=== PATIENT | male | born 1985 | race Two or more races ===

== ENCOUNTER 2021-03-29 21:22 | Emergency (ER) | payer MEDICARE, OTHER ==
[~2021-03-29] VITALS: Ht 167.6 cm; Wt 61.2 kg
--- NOTE | 2021-03-29 21:30 | NUR ---
PATIENT BIBRA C/O HAVING A SEIZURE. PATIENT IS A/O TO TOUCH, PT Hx BLIND,DEAF, SEIZURE. PATIENT CONNECTED TO HEAD KILN OPERATOR AND POX. SEIZURE PRECAUTIONS ARE IN PLACE. SISTER IS AT BEDSIDE. WILL CONTINUE TO MONITOR.
--- NOTE | 2021-03-29 22:04 | NUR ---
PATIENT TAKEN TO CT
[2021-03-29] MEDS ORDERED: ACETAMINOPHEN 325 MG TABLET PO ONE (22:30)
[2021-03-29] MEDS ORDERED: ACETAMINOPHEN 325 MG TABLET ONE (22:38)
[2021-03-29 22:51] LABS: BASOPHILS % (AUTO) 0.5 % (0.0-2.0); EOSINOPHILS % (AUTO) 1.7 % (0.0-6.0); HEMATOCRIT 44 % (39-51); LYMPHOCYTES # (AUTO) 0.8 K/uL (0.8-4.8); LYMPHOCYTES % (AUTO) 17.2 % (20.0-44.0); MEAN CORPUSCULAR HGB CONC 34 g/dl (31.0-36.0); MEAN CORPUSCULAR VOLUME 89 fL (80-96); MONOCYTES # (AUTO) 0.3 K/uL (0.1-1.30); MONOCYTES % (AUTO) 6.7 % (2.0-12.0); NEUTROPHILS # (AUTO) 3.5 K/uL (1.8-8.9); NEUTROPHILS % (AUTO) 73.9 % (43.0-81.0); PLATELET COUNT (AUTO) 257 K/uL (150-450); RED BLOOD CELL COUNT(AUTO) 5.01 MIL/uL (4.5-6.0); WHITE BLOOD COUNT (AUTO) 4.8 K/uL (4.3-11.0)
--- NOTE | 2021-03-29 23:10 | NUR ---
URINE SENT TO LAB
[2021-03-29 23:11] LABS: CALCIUM, SERUM 9.2 mg/dL (8.5-10.1); CARBON DIOXIDE 22 mmol/L (21-32); CHLORIDE 97 mmol/L (98-107); CREATININE 0.6 mg/dL (0.6-1.3); GLUCOSE 123 mg/dL (74-106); POTASSIUM 3.5 mmol/L (3.5-5.1); SODIUM SERUM 133 mmol/L (136-145); UREA NITROGEN, BLOOD 7 mg/dL (7-18)
[2021-03-29 23:16] LABS: ALANINE AMINOTRANSFERASE 78 U/L (12-78); ALBUMIN 4.1 g/dL (3.4-5.0); ALKALINE PHOSPHATASE 248 U/L (46-116); ASPARTATE AMINOTRANSFERASE 41 U/L (15-37); BILIRUBIN,DIRECT 0.1 mg/dL (0.0-0.2); BILIRUBIN,TOTAL 0.3 mg/dL (0.2-1.0)
--- NOTE | 2021-03-29 23:19 | NUR ---
CALLED LAB TO CHECK FOR URINE RESULTS
[2021-03-29 23:22] LABS: BILIRUBIN,URINE Negative (NEGATIVE); COLOR,URINE YELLOW (YELLOW); LEUKOCYTE ESTERASE ,URINE Negative (NEGATIVE); NITRITE, URINE Negative (NEGATIVE); PROTEIN,URINE 100 mg/dl (NEGATIVE); UGLUCOSE Negative (NEGATIVE); UROBILINOGEN,URINE 0.2 EU/dL (0.2)
--- NOTE | 2021-03-30 00:24 | NUR ---
Patient discharged to home in stable condition. Written and verbal after care instructions given. Patient verbalizes understanding of instruction.
[2021-03-30 00:25] VITALS: BP 103/66
== END 2021-03-30 00:25 | disposition home or self-care (01) ==
LOC: ER 21:34
DX: G40.909 Epilepsy, unspecified, not intractable, without status epilepticus (principal); R00.0 Tachycardia, unspecified; Z88.0 Allergy status to penicillin; Z88.5 Allergy status to narcotic agent; Z88.1 Allergy status to other antibiotic agents
CPT/HCPCS: 36415; 70450-TC; 71045-TC; 80048-TC; 80076-TC; 82550-TC; 83605-TC; 85025-TC; 85730-TC

== ENCOUNTER 2022-02-05 03:33 | Inpatient (IN) | payer MEDICARE, OTHER ==
[~2022-02-05] VITALS: Ht 149.9 cm; Wt 36.7 kg
--- NOTE | 2022-02-05 03:36 | NUR ---
THELMA 37 FROM HOME FOR C/O SEIZURE EPISODE. PATIENT NON VERBAL, IN BED 06 ON MONITOR AND POX, AWAITING MD ZAPIEN. RECTAL TEMP RECORDED 101. SEIZURE PRECAUTIONS NOTED.
[2022-02-05] MEDS ORDERED: LORAZEPAM INJ 2 MG/ML VIAL ONE ×2 (03:44→03:57)
--- NOTE | 2022-02-05 03:50 | NUR ---
CARLA ESTABLISHED LFA #20 S/L; PATENT AND INTACT. RFA #20G S/L PATENT AND INTACT.
[2022-02-05] MEDS ORDERED: LEVETIRACETAM (500MG) 500 MG/5 ML VIAL IV ONE (03:55)
[2022-02-05 04:00] LABS: BASOPHILS # (AUTO) 0.1 K/uL (0.0-0.2); BASOPHILS % (AUTO) 0.8 % (0.0-2.0); EOSINOPHILS % (AUTO) 1.8 % (0.0-6.0); HEMATOCRIT 40 % (39-51); HEMOGLOBIN 13.6 g/dL (13.5-17.5); LYMPHOCYTES # (AUTO) 2.3 K/uL (0.8-4.8); LYMPHOCYTES % (AUTO) 31.3 % (20.0-44.0); MEAN CORPUSCULAR HGB CONC 34 g/dl (31.0-36.0); MEAN CORPUSCULAR VOLUME 88 fL (80-96); MONOCYTES # (AUTO) 0.7 K/uL (0.1-1.30); MONOCYTES % (AUTO) 9.6 % (2.0-12.0); NEUTROPHILS # (AUTO) 4.1 K/uL (1.8-8.9); NEUTROPHILS % (AUTO) 56.5 % (43.0-81.0); PLATELET COUNT (AUTO) 197 K/uL (150-450); RED BLOOD CELL COUNT(AUTO) 4.51 MIL/uL (4.5-6.0); WHITE BLOOD COUNT (AUTO) 7.2 K/uL (4.3-11.0)
[2022-02-05] MEDS ORDERED: LEVETIRACETAM (500MG) 500 MG in IV NS 0.9% 100 ML IV ONE (04:00)
[2022-02-05] MEDS ORDERED: AZTREONAM 2 G in IV NS 0.9% 100 ML IV ONE (04:00)
[2022-02-05] MEDS ORDERED: IV NS 0.9% 1,000 ML BAG IV ONE ×2 (04:00)
[2022-02-05] MEDS ORDERED: LINEZOLID RTU BAG 600 MG in PREMIX 1 EA IV SCH ×2 (04:00→09:00)
[2022-02-05] MEDS ORDERED: LORAZEPAM INJ 2 MG/ML VIAL IVP ONE (04:00)
--- NOTE | 2022-02-05 04:00 | NUR ---
COVID SWAB DONE AND SENT TO LAB
--- NOTE | 2022-02-05 04:00 | NUR ---
BLOOD AND CULTURES COLLECTED AND SENT TO LAB
[2022-02-05] MEDS ORDERED: AZTREONAM 1 G VIAL ONE (04:06)
[2022-02-05 04:16] LABS: CALCIUM, SERUM 8.6 mg/dL (8.5-10.1); CARBON DIOXIDE 27 mmol/L (21-32); CHLORIDE 92 mmol/L (98-107); CREATININE 0.9 mg/dL (0.6-1.3); GLUCOSE 133 mg/dL (74-106); POTASSIUM 3.5 mmol/L (3.5-5.1); SODIUM SERUM 130 mmol/L (136-145); UREA NITROGEN, BLOOD 5 mg/dL (7-18)
--- NOTE | 2022-02-05 04:16 | NUR ---
URINE COLLECTED AND SENT TO LAB
[2022-02-05 04:21] LABS: ALANINE AMINOTRANSFERASE 43 U/L (12-78); ALBUMIN 4.3 g/dL (3.4-5.0); ALCOHOL, BLOOD < 3 mg/dL (0-0); ALKALINE PHOSPHATASE 213 U/L (46-116); ASPARTATE AMINOTRANSFERASE 28 U/L (15-37); BILIRUBIN,DIRECT 0.2 mg/dL (0.0-0.2); BILIRUBIN,TOTAL 0.3 mg/dL (0.2-1.0); TOTAL PROTEIN, SERUM 8.3 g/dL (6.4-8.2)
--- NOTE | 2022-02-05 04:22 | NUR ---
ZYVOX 600MG NOT AVAILABLE. WILL CALL RN HORSE SHOW MANAGER FOR MED
--- NOTE | 2022-02-05 04:22 | NUR ---
HIGH SCHOOL HISTORY TEACHER AT PT'S BEDSIDE
--- NOTE | 2022-02-05 04:30 | NUR ---
MRSA SWAB COLLECTED AND SENT TO LAB. PT BELONGINGS LIST DONE
--- NOTE | 2022-02-05 04:32 | NUR ---
PT TAKEN TO CT VIA ELIAS
--- NOTE | 2022-02-05 04:34 | NUR ---
CRITICAL LAB: LACTIC ACID 7.5. DR. LAW TOMAS AWARE
[2022-02-05 05:15] LABS: BILIRUBIN,URINE NEGATIVE (NEGATIVE); COLOR,URINE YELLOW (YELLOW); LEUKOCYTE ESTERASE ,URINE MODERATE (NEGATIVE); NITRITE, URINE NEGATIVE (NEGATIVE); PROTEIN,URINE 100 mg/dl (NEGATIVE); UGLUCOSE NEGATIVE (NEGATIVE); UROBILINOGEN,URINE 0.2 EU/dL (0.2)
--- NOTE | 2022-02-05 05:17 | NUR ---
[facility] PAGED
[2022-02-05 05:32] LABS: BACTERIA,URINE Many /HPF (None Seen); SQUAMOUS EPITHELIAL CELL,UR 0-2 /HPF (None Seen); WBC,URINE TOO NUMEROUS TO COUN /HPF (0-3)
[2022-02-05] MEDS ORDERED: LEVE100023 GT (06:32)
[2022-02-05] MEDS ORDERED: PANT40TA2 GT (06:32)
[2022-02-05] MEDS ORDERED: LACT10SO3 GT (06:32)
[2022-02-05] MEDS ORDERED: LEVE100S GT (06:32)
[2022-02-05] MEDS ORDERED: OXCA300T15 GT (06:32)
--- NOTE | 2022-02-05 06:58 | NUR ---
PATIENT TRANSFERRED UNDER ACLS
[2022-02-05] MEDS ORDERED: MAG HYDROX/AL HYDROX/SIMETH 30 ML UDC PO PRN (07:00)
[2022-02-05] MEDS ORDERED: ONDANSETRON HCL/PF 4 MG/2 ML VIAL IVP PRN (07:00)
[2022-02-05] MEDS ORDERED: ACETAMINOPHEN 325 MG TABLET PO PRN (07:00)
[2022-02-05] MEDS ORDERED: LORAZEPAM INJ 2 MG/ML VIAL IV PRN (07:00)
--- NOTE | 2022-02-05 07:00 | NUR ---
RN NOTE- PT ARRIVED ON UNIT. REPORT RECEIVED FROM ED STAFF. BEGIN ADMISSION PROCESS
--- NOTE | 2022-02-05 07:15 | NUR ---
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 PT HAS SEPSIS AND UTI DX. ON ADMISSION, PT IS DEAF / MUTE, CONTRACTED AND FAIRLY UNRESPONSIVE EXCEPT THROUGH VERY MILD PAIN STIMULI. PT CONTRACTED, FRAIL AND WEIGHS 81 POUNDS. HE HAS AN IV HEPLOCK TO RFA. CHEST - TO AUSCULTATION, NO RHONCHI, NO RALES, DIMINISHED THROUGHOUT. ABDOMEN, SOFT NON-TENDER, NO DISTENTION, NO REBOUND TENDERNESS. BS POSITIVE AND HYPOACTIVE. GT IN PLACE. NO ERYTHEMA NOTED. SWALLOW EVAL ORDERED. ORDERS RECEIVED AND COMPLIED WITH. SEIZURE PRECAUTIONS IN PLACE, SIDE RAILS UP X 4, BED LOCKED, MONITOR, ASSIST
[2022-02-05] MEDS ORDERED: PANTOPRAZOLE 40 MG TABLET.DR PO SCH (07:30)
[2022-02-05 08:00] VITALS: BP 100/74
[2022-02-05] MEDS ORDERED: MAG HYDROX/AL HYDROX/SIMETH 30 ML UDC GT PRN (08:10)
[2022-02-05] MEDS: ENOXAPARIN SODIUM 40 MG/0.4 ML DISP.SYRIN SQ SCH (08:25)
[2022-02-05] MEDS ORDERED: ACETAMINOPHEN 650 MG/20.3 ML UDC PO PRN (08:30)
[2022-02-05] MEDS ORDERED: LACT-47 GT (08:31)
[2022-02-05] MEDS ORDERED: OXCA300O5 GT (08:31)
[2022-02-05] MEDS ORDERED: PANT40SU2 GT (08:31)
[2022-02-05] MEDS ORDERED: LEVETIRACETAM (500MG) 500 MG in IV NS 0.9% 100 ML IV SCH (09:00)
[2022-02-05] MEDS ORDERED: Z GUARD REMEDY 4 OZ OINT TP PRN (09:00)
[2022-02-05 12:00] VITALS: BP 86/57
[2022-02-05] MEDS ORDERED: AZTREONAM 1 G in IV NS 0.9% 100 ML IV SCH (13:00)
--- NOTE | 2022-02-05 13:00 | NUR ---
RN NOTE- INITIATED JEVITY AT 20/HR. INCREASE Q4H
[2022-02-05] MEDS: JEVITY 1.2 CAL 1,000 ML BOTTLE GT PRN (13:04)
[2022-02-05] MEDS: CEFTRIAXONE 1 G in IV D5W 50 ML IV SCH (13:18)
[2022-02-05 16:00] VITALS: BP 88/47
[2022-02-05] MEDS: OXCARBAZEPINE 150 MG TABLET GT SCH (16:02)
--- NOTE | 2022-02-05 16:22 | NUR ---
RN NOTE- DR HERNANDEZ SAW PT AND ORDERED KEPPRA 1000MG Q12H. PT THEN STOPPED THIS RN AND ASKED TO CHANGE ORDER TO KEPPRA 750 MG Q12H . COMPLIED
--- NOTE | 2022-02-05 17:00 | NUR ---
RN NOTE- JEVITY INCREASED TO 40 / HR . TOLERATING WELL. NO RESIDUAL
--- NOTE | 2022-02-05 18:57 | NUR ---
RN CLOSING NOTE- PT IN BED, NOT REALLY RESPONSIVE, SOMNOLENT, GT FEEDING JEVITY AT 30/HR, NO RESIDUAL. CHEST CLEAR TO AUSCULTATION, CONTRACTED EXTREMITIES. SKIN INTACT. SIDE RAILS UP AND PADDED FOR SEIZURE PRECATIONS, BED LOCKED. MONITOR / ASSIST
[2022-02-05 20:00] VITALS: BP 97/56
--- NOTE | 2022-02-05 20:30 | NUR ---
RN NOTES: RECEIVED PATIENT SLEEP IN BED COMFORTABLY, BED IN LOW POSITION CALL LIGHTS WITHIN REACH, NO COMPLAIN OF PAIN AND DISCOMFORT AT THIS TIME ON O2 INHALATION AT AT 5LPM VIA NASAL CANNULA PATIENT IS MONITORING FOR DESATURATION, WITH IV LINE AT RFA#20 AND LFA#20 SALINE LOCK, PATIENT ON G TUBE FEEDING OF JEVITY 1.2 AT 30CC/HR TO ADVANCE TO 45CC,ON MONITORING FOR SEIZURE NO SEIZURE HAS BEEN OBSERVED, PATIENT KEPT CLEAN AND DRY ALL NEEDS MET WILL CONTINUE TO MONITOR.
[2022-02-05] MEDS ORDERED: LEVETIRACETAM (500MG) 1,000 MG in IV NS 0.9% 100 ML IV SCH (21:00)
[2022-02-05] MEDS: LEVETIRACETAM (500MG) 750 MG in IV NS 0.9% 100 ML IV SCH (21:08)
[2022-02-05] MEDS ORDERED: ZOLPIDEM TARTRATE 5 MG TABLET GT PRN (22:00)
[2022-02-05] MEDS ORDERED: MAGNESIUM HYDROXIDE 30 ML UDC GT PRN (22:00)
[2022-02-06 04:00] VITALS: BP 96/62
--- NOTE | 2022-02-06 06:31 | NUR ---
REPRESENTATIVE CLOSING NOTES: PATIENT SLEEP IN BED COMFORTABLY, BED IN LOW POSITION CALL LIGHTS WITHIN REACH, NO COMPLAIN OF PAIN AND DISCOMFORT AT THIS TIME, ON O2 INHALATION AT 5LPM SATURATING WELL, ON TELE MONITOR A FIB-104 CONTROL .PATIENT IS A/OX1 CONTRACTED AT [facility], ON BILATERAL MITTENS DUE TO HITTING SELF, PATIENT ON NG TUBE OF JEVITY 1.2@45ML/HR INFUSING WELL, PATIENT KEPT CLEAN AND DRY ALL NEEDS MET ENDORSE TO INCOMING SHIFT
[2022-02-06 06:39] LABS: BASOPHILS % (AUTO) 0.2 % (0.0-2.0); HEMATOCRIT 36 % (39-51); HEMOGLOBIN 12.5 g/dL (13.5-17.5); LYMPHOCYTES # (AUTO) 0.6 K/uL (0.8-4.8); LYMPHOCYTES % (AUTO) 11.8 % (20.0-44.0); MEAN CORPUSCULAR HGB CONC 35 g/dl (31.0-36.0); MEAN CORPUSCULAR VOLUME 85 fL (80-96); MONOCYTES # (AUTO) 0.2 K/uL (0.1-1.30); MONOCYTES % (AUTO) 4.7 % (2.0-12.0); NEUTROPHILS # (AUTO) 3.9 K/uL (1.8-8.9); NEUTROPHILS % (AUTO) 83.3 % (43.0-81.0); PLATELET COUNT (AUTO) 125 K/uL (150-450); RED BLOOD CELL COUNT(AUTO) 4.22 MIL/uL (4.5-6.0); WHITE BLOOD COUNT (AUTO) 4.7 K/uL (4.3-11.0)
[2022-02-06] MEDS: ENOXAPARIN SODIUM 40 MG/0.4 ML DISP.SYRIN SQ SCH (06:47)
[2022-02-06 06:53] LABS: CALCIUM, SERUM 8.4 mg/dL (8.5-10.1); CREATININE 0.6 mg/dL (0.6-1.3); MAGNESIUM 2.2 mg/dL (1.8-2.4); PHOSPHORUS 2.6 mg/dL (2.5-4.9); POTASSIUM 3.2 mmol/L (3.5-5.1)
--- NOTE | 2022-02-06 07:30 | NUR ---
RECREATION THERAPY AIDES TEACHER NOTES PT IN BED, AWAKE, NON VERBAL, NO SIGN OF PAIN OR DISTRESS, GT FEEDING INFUSING WELL, TOLERATES WELL, KEPT WARM AND COMFORTABLE IN BED.
[2022-02-06] MEDS: LEVETIRACETAM (500MG) 750 MG in IV NS 0.9% 100 ML IV SCH ×2 (09:09→21:14)
[2022-02-06] MEDS: OXCARBAZEPINE 150 MG TABLET GT SCH ×2 (09:10→17:16)
[2022-02-06] MEDS: PANTOPRAZOLE 40 MG/PACK PACK GT SCH (09:10)
--- NOTE | 2022-02-06 10:59 | NUR ---
PATIENT FINANCIAL SERVICES MANAGER NOTES PT SEEN AND EXAMINED BY DR. KIM, ORDERS GIVEN, NOTED AND CARRIED OUT.
--- NOTE | 2022-02-06 10:59 | NUR ---
REEL OPERATOR NOTES DE. KIM INFORMED THAT PT HAS TENDENCIES TO HIT HIS FACE AND PICK ON HIS IV LINES, BILATERAL MITTENS ORDERED.
[2022-02-06] MEDS ORDERED: POTASSIUM CHLORIDE 20 MEQ TAB.PRT.SR PO ONE (11:00)
[2022-02-06] MEDS: CEFTRIAXONE 1 G in IV D5W 50 ML IV SCH (12:35)
[2022-02-06 16:00] VITALS: BP 105/59
[2022-02-06] MEDS: JEVITY 1.2 CAL 1,000 ML BOTTLE GT PRN (18:29)
--- NOTE | 2022-02-06 19:00 | NUR ---
RN MS Pt resting in bed comfortably. No s/s of distress or pain noted. Afternoon meds administered, VS remain stable, on feeding Jevity 1.2 nagi, with J tube site intact. Will endorse to PM nurse.
--- NOTE | 2022-02-06 19:00 | NUR ---
RN opening notes Received Pt in bed resting comfortably. Pt is obtunded and able to open eyes. On 5 L NC. No SOB. No S/S of distress noted. IV site at RFA# 20 is clean, intact and flushes easily. Iv site at LFA# 20 is clean, intact and SL. Gtube is inplaced and running jevity 1.2 @ 45 ml/hr. Safety precautions is maintained. Bed at low position, brakes locked, side rails upX3, hob elevated, bed alarm is on and call light is within reach. Will continue to monitor.
[2022-02-06 20:00] VITALS: BP 108/61
--- NOTE | 2022-02-06 23:13 | NUR ---
RN notes Informed and notified Dr. Pompa regarding KUB result. MD ordered enemaX1/one time. Order carry out.
[2022-02-06] MEDS ORDERED: NA PHOS,M-B/NA PHOS,DI-BA 1 EA ENEMA RC ONE (23:30)
--- NOTE | 2022-02-06 23:46 | NUR ---
RN notes Administered enema per MD ordered. Pt tolerated activity well. Will continue to monitor.
[2022-02-07] MEDS: ENOXAPARIN SODIUM 40 MG/0.4 ML DISP.SYRIN SQ SCH (06:10)
--- NOTE | 2022-02-07 06:40 | NUR ---
RN closing notes Pt is resting in bed comfortably. Pt is obtunded and able to open eyes. On 5 L NC. No SOB. No S/S of distress noted. VS is stable. routine meds were given as ordered. IV site at RFA# 20 is clean, intact and flushes easily. Iv site at LFA# 20 is clean, intact and SL. Gtube is inplaced and running jevity 1.2 @ 45 ml/hr with 0 residual. Pt had 2 BM after enema. Kept Pt clean, dry and comfortable. Safety precautions is maintained. Bed at low position, brakes locked, side rails upX3, hob elevated, bed alarm is on and call light is within reach. Will endorse to am nurse for ROSY.
--- NOTE | 2022-02-07 07:48 | NUR ---
MS RN OPENING NOTE Patient is obtunded and non-verbal. On O2 at 5 LPM via NC, breathing evenly and unlabored. No SOB or s/s of distress noted. IV access on RFA #20 and LFA #20 both intact and patent. G-tube in place running Jevity 1.2 at 45 ml/hr. Bilateral soft restraints (mittens) noted. Safety precautions in place: bed in low, locked position; siderailsup x 2; call light within reach. Will continue to monitor.
[2022-02-07] MEDS: PANTOPRAZOLE 40 MG/PACK PACK GT SCH (08:15)
[2022-02-07] MEDS: OXCARBAZEPINE 150 MG TABLET GT SCH ×2 (08:16→16:19)
[2022-02-07] MEDS ORDERED: LEVETIRACETAM SOL (5 ML) 100 MG/ML UDC GT SCH (09:00)
[2022-02-07] MEDS ORDERED: NA PHOS,M-B/NA PHOS,DI-BA 1 EA ENEMA RC ONE (11:00)
[2022-02-07] MEDS: CEFTRIAXONE 1 G in IV D5W 50 ML IV SCH (13:01)
[2022-02-07] MEDS ORDERED: LEVE100S GT (13:02)
--- NOTE | 2022-02-07 14:18 | NUR ---
RN NOTE Upon rounds, noticed patient hitting head with left hand with the mitten. Redness on forehead noted, photo taken and placed in chart. Patient's sister, Carolynn, notified, as per sister that is a normal occurrence with patient. Addendum: 02/07/22 at 1434 by LOUIS SHANKS RN ADD: Patient is deaf-mute and blind. Restraints changed to bilateral soft wrist, to prevent patient from hitting head.
--- NOTE | 2022-02-07 17:00 | NUR ---
DISCHARGE NOTE Received order for discharge. Patient is obtunded and non-verbal; deaf, mute, and blind. On 5LPM via NC, breathing evenly and unlabored. No SOB or s/s of distress noted. Discharge instructions given to patient's sister. No belongings at bedside. G-tube in place, feeding disconnected. IV access on RFA and LFA removed, catheter tips intact. Pressure dressing applied, no signs of bleeding noted. ID band removed. Exitcare folder given to EMT. Patient left in stable condition with 3 hoop punch operator helper present.
== END 2022-02-07 17:00 | disposition home or self-care (01) | DRG 871 ==
LOC: ER 03:34 → TELE 06:03 → MED 02-06 17:57
PROVIDERS: ADMIT Nurse Practitioner Acute Care; ATTEND Internal Medicine
DX: A41.9 Sepsis, unspecified organism (principal); G93.41 Metabolic encephalopathy; N39.0 Urinary tract infection, site not specified; E87.2 Acidosis; E87.1 Hypo-osmolality and hyponatremia; G40.909 Epilepsy, unspecified, not intractable, without status epilepticus; Z20.822 Contact with and (suspected) exposure to COVID-19; H54.7 Unspecified visual loss; H91.3 Deaf nonspeaking, not elsewhere classified; Z88.1 Allergy status to other antibiotic agents; Z88.5 Allergy status to narcotic agent; Z88.0 Allergy status to penicillin; Z79.899 Other long term (current) drug therapy; Z93.1 Gastrostomy status; R13.10 Dysphagia, unspecified; Z98.2 Presence of cerebrospinal fluid drainage device; Z74.01 Bed confinement status; Z86.69 Personal history of other diseases of the nervous system and sense organs; K31.89 Other diseases of stomach and duodenum; E11.43 Type 2 diabetes mellitus with diabetic autonomic (poly)neuropathy; K31.84 Gastroparesis; E87.6 Hypokalemia; G93.89 Other specified disorders of brain
CPT/HCPCS: 36415; 70450-TC; 71045-TC; 74018; 80048-TC; 80076-TC; 81001; 82962-TC; 83605-TC; 83735-TC; 84100-TC; 84484-TC; 85025-TC; 85730-TC; 87040-TC; 87081-TC; 87086-TC; 94799-TC; A4216; C9803; G0378; G0480; J0696; J1650; J1953; J2020; J2060; J3490; J7030; J7040; J7060

== ENCOUNTER 2023-10-14 16:46 | Inpatient (IN) | payer MEDICARE, OTHER ==
[~2023-10-14] VITALS: Ht 152.4 cm; Wt 36.3 kg
[~2023-10-14 16:46] MED LIST: LACT-47 GT; LACT10SO3 GT; LEVE100S GT; OXCA300O5 GT; PANT40SU2 GT
[2023-10-14 19:37] LABS: BASOPHILS % (AUTO) 0.9 % (0.0-2.0); EOSINOPHILS # (AUTO) 0.2 K/uL (0.0-0.7); EOSINOPHILS % (AUTO) 4.1 % (0.0-6.0); HEMATOCRIT 43 % (39-51); HEMOGLOBIN 14.3 g/dL (13.5-17.5); LYMPHOCYTES # (AUTO) 1.3 K/uL (0.8-4.8); LYMPHOCYTES % (AUTO) 32.2 % (20.0-44.0); MEAN CORPUSCULAR HEMOGLOBIN 28 PG (26.0-33.0); MEAN CORPUSCULAR HGB CONC 33 g/dl (31.0-36.0); MEAN CORPUSCULAR VOLUME 85 fL (80-96); MONOCYTES # (AUTO) 0.4 K/uL (0.1-1.30); MONOCYTES % (AUTO) 10.6 % (2.0-12.0); NEUTROPHILS # (AUTO) 2.1 K/uL (1.8-8.9); NEUTROPHILS % (AUTO) 52.2 % (43.0-81.0); PLATELET COUNT (AUTO) 202 K/uL (150-450); RED BLOOD CELL COUNT(AUTO) 5.09 MIL/uL (4.5-6.0); RED CELL DISTRIBUTION WIDTH 13.2 % (11.5-15.0)
[2023-10-14 19:43] LABS: APPEARANCE,URINE Clear (CLEAR); BILIRUBIN,URINE Negative (NEGATIVE); BLOOD, URINE Negative Ery/uL (NEGATIVE); COLOR,URINE LIGHT YELLOW (YELLOW); KETONES,URINE Negative (NEGATIVE); LEUKOCYTE ESTERASE ,URINE Negative (NEGATIVE); NITRITE, URINE Negative (NEGATIVE); PH,URINE 7.5 (5.0-8.0); PROTEIN,URINE Negative (NEGATIVE); UGLUCOSE Negative (NEGATIVE); UROBILINOGEN,URINE 0.2 EU/dL (0.2)
[2023-10-14 19:44] LABS: CALCIUM, SERUM 9.1 mg/dL (8.5-10.1); CARBON DIOXIDE 26 mmol/L (21-32); CHLORIDE 92 mmol/L (98-107); CREATININE 0.7 mg/dL (0.6-1.3); GLUCOSE 88 mg/dL (74-106); POTASSIUM 4.2 mmol/L (3.5-5.1); SODIUM SERUM 125 mmol/L (136-145); UREA NITROGEN, BLOOD 4 mg/dL (7-18)
[2023-10-14 19:50] LABS: ALANINE AMINOTRANSFERASE 38 U/L (12-78); ALCOHOL, BLOOD < 3 mg/dL (0-10); ALKALINE PHOSPHATASE 221 U/L (46-116); ASPARTATE AMINOTRANSFERASE 22 U/L (15-37); BILIRUBIN,DIRECT 0.1 mg/dL (0.0-0.2); BILIRUBIN,TOTAL 0.3 mg/dL (0.2-1.0); TOTAL PROTEIN, SERUM 7.9 g/dL (6.4-8.2)
[2023-10-14 19:52] LABS: ACETAMINOPHEN <10 ug/ml (10-30)
[2023-10-14 20:01] LABS: AMPHETAMINE, URINE NEGATIVE (NEGATIVE); BARBITURATE, URINE NEGATIVE (NEGATIVE); BENZODIAZEPINE, URINE NEGATIVE (NEGATIVE); CANNABINOID, URINE NEGATIVE (NEGATIVE); COCCAINE, URINE NEGATIVE (NEGATIVE); OPIATE, URINE NEGATIVE (NEGATIVE); PHENCYCLIDINE SCREEN,URINE NEGATIVE (NEGATIVE)
[2023-10-14] MEDS ORDERED: ONDANSETRON HCL/PF 4 MG/2 ML VIAL IVP PRN (23:00)
[2023-10-15] MEDS: IV NS 0.9% 1,000 ML BAG IV ONE (00:30)
[2023-10-15 04:05] VITALS: BP 97/84; TEMP 97.9; O2SAT 100
[2023-10-15] MEDS: IV NS 0.9% 1,000 ML IV SCH (04:28)
[2023-10-15 07:22] LABS: BASOPHILS # (AUTO) 0.1 K/uL (0.0-0.2); BASOPHILS % (AUTO) 0.9 % (0.0-2.0); EOSINOPHILS # (AUTO) 0.1 K/uL (0.0-0.7); HEMATOCRIT 41 % (39-51); HEMOGLOBIN 13.9 g/dL (13.5-17.5); LYMPHOCYTES # (AUTO) 1.6 K/uL (0.8-4.8); LYMPHOCYTES % (AUTO) 23.9 % (20.0-44.0); MEAN CORPUSCULAR HEMOGLOBIN 29 PG (26.0-33.0); MEAN CORPUSCULAR HGB CONC 34 g/dl (31.0-36.0); MEAN CORPUSCULAR VOLUME 86 fL (80-96); MONOCYTES # (AUTO) 0.6 K/uL (0.1-1.30); MONOCYTES % (AUTO) 9.3 % (2.0-12.0); NEUTROPHILS # (AUTO) 4.2 K/uL (1.8-8.9); NEUTROPHILS % (AUTO) 63.9 % (43.0-81.0); PLATELET COUNT (AUTO) 249 K/uL (150-450); RED BLOOD CELL COUNT(AUTO) 4.74 MIL/uL (4.5-6.0); RED CELL DISTRIBUTION WIDTH 13.8 % (11.5-15.0); WHITE BLOOD COUNT (AUTO) 6.6 K/uL (4.3-11.0)
[2023-10-15] MEDS ORDERED: LEVE100S GT (07:55)
[2023-10-15 08:00] VITALS: BP 125/68; TEMP 98.7; O2SAT 99
[2023-10-15] MEDS: OXCARBAZEPINE 150 MG TABLET GT SCH (08:57)
[2023-10-15] MEDS: LEVETIRACETAM SOL (5 ML) 100 MG/ML UDC GT SCH (08:57)
[2023-10-15] MEDS: LACTULOSE 10 G/15 ML UDC (PYXIS) GT SCH (08:57)
[2023-10-15] MEDS: PANTOPRAZOLE 40 MG/PACK PACK GT SCH (08:57)
[2023-10-15] MEDS: HEPARIN SODIUM, PORCINE 5000 UNITS/1 ML VIAL SQ SCH (08:58)
[2023-10-15] MEDS: ENSURE CLEAR 237 ML LIQUID (MIX BERRY) GT SCH (08:59)
[2023-10-15 11:31] LABS: BILIRUBIN,TOTAL 0.5 mg/dL (0.2-1.0)
[2023-10-15 11:32] LABS: ALBUMIN 3.5 g/dL (3.4-5.0); MAGNESIUM 2.5 mg/dL (1.8-2.4); POTASSIUM 5.2 mmol/L (3.5-5.1); TOTAL PROTEIN, SERUM 8.4 g/dL (6.4-8.2)
[2023-10-15 11:33] LABS: CALCIUM, SERUM 9.1 mg/dL (8.5-10.1); CREATININE 0.6 mg/dL (0.6-1.3); PHOSPHORUS 2.9 mg/dL (2.5-4.9)
[2023-10-15 12:00] VITALS: BP 105/73; TEMP 98.2; O2SAT 99
[2023-10-15 16:00] VITALS: BP 109/82; TEMP 97.6; O2SAT 100
[2023-10-15 20:00] VITALS: BP 107/63; TEMP 97.7; O2SAT 100
[2023-10-15] MEDS: JEVITY 1.2 CAL 1,000 ML BOTTLE GT PRN (20:43)
[2023-10-16] VITALS: BP 120/75; TEMP 97.6; O2SAT 100
[2023-10-16 00:59] LABS: CALCIUM, SERUM 8.9 mg/dL (8.5-10.1); CREATININE 0.7 mg/dL (0.6-1.3); MAGNESIUM 2.2 mg/dL (1.8-2.4); PHOSPHORUS 3.6 mg/dL (2.5-4.9); POTASSIUM 3.8 mmol/L (3.5-5.1)
[2023-10-16 01:03] LABS: THYROID STIMULATING HORMONE 1.095 uIU/mL (0.358-3.74)
[2023-10-16 04:00] VITALS: BP 128/76; TEMP 98; O2SAT 100
[2023-10-16 08:00] VITALS: BP_SYST 11; BP_SYST 111; BP_DIAS 83; TEMP 98.7; O2SAT 100
[2023-10-16 12:00] VITALS: BP 103/83; TEMP 99.6; O2SAT 95
[2023-10-16] MEDS: LORAZEPAM 0.5 MG TABLET PEG ONE (12:38)
[2023-10-16] MEDS: ACETAMINOPHEN 325 MG TABLET PO PRN (12:39)
== END 2023-10-16 14:57 | disposition home health service (06) | DRG 640 ==
LOC: ER 17:04 → TELE1 23:27
PROVIDERS: ADMIT Internal Medicine
DX: E86.9 Volume depletion, unspecified (principal); G93.41 Metabolic encephalopathy; R53.2 Functional quadriplegia; R47.01 Aphasia; E87.1 Hypo-osmolality and hyponatremia; E87.5 Hyperkalemia; G40.909 Epilepsy, unspecified, not intractable, without status epilepticus; Z88.0 Allergy status to penicillin; Z93.1 Gastrostomy status; Z98.2 Presence of cerebrospinal fluid drainage device; Z87.440 Personal history of urinary (tract) infections; R62.50 Unspecified lack of expected normal physiological development in childhood; H54.7 Unspecified visual loss; H91.3 Deaf nonspeaking, not elsewhere classified; R74.8 Abnormal levels of other serum enzymes
CPT/HCPCS: 36415; 70450-TC; 80048-TC; 80053-TC; 80076-TC; 82533; 83735-TC; 84100-TC; 84295-TC; 84443-TC; 84550-TC; 85025-TC; 97110-TC; 97530-TC; A4223; G0378; G0480; J1644; J1953; J7030